=== PATIENT | male | born 1955 | race Caucasian/White ===

== ENCOUNTER 2020-12-24 14:37 | Emergency (ER) | payer MEDICARE, OTHER ==
[~2020-12-24] VITALS: Ht 180.3 cm; Wt 113.6 kg
[2020-12-24 15:53] LABS: BASO % 0 % (0-3); EOS # 0.2 x10^3/uL (0.0-0.7); EOS % 3 % (0-3); HEMOGLOBIN 10.5 g/dL (13.0-17.5); LYMPH # 1.6 x10^3/uL (1.0-4.8); LYMPH % 30 % (24-48); MEAN CORPUSCULAR HEMOGLOBIN 26 pg (25-35); MEAN CORPUSCULAR HGB CONC 32 g/dL (31-37); MEAN CORPUSCULAR VOLUME 82 fL (79-100); MONO # 0.5 x10^3/uL (0.0-1.1); MONO % 9 % (0-9); NEUT % 57 % (31-73); PLATELET COUNT 280 x10^3/uL (140-400); RED BLOOD COUNT 4.05 x10^6/uL (4.30-5.70); RED CELL DISTRIBUTION WIDTH 17.8 % (11.5-14.5); WHITE BLOOD COUNT 5.2 x10^3/uL (4.0-11.0)
[2020-12-24 15:59] LABS: BILIRUBIN,URINE NEGATIVE (NEG); CLARITY,URINE CLEAR; COLOR,URINE YELLOW; NITRITE,URINE POSITIVE (NEG); PROTEIN,URINE NEGATIVE (NEG-TRACE)
[2020-12-24 16:06] LABS: BACTERIA,URINE FEW /HPF (0-FEW); RBC,URINE OCC /HPF (0-2)
[2020-12-24 16:10] LABS: CALCIUM 8.9 mg/dL (8.5-10.1); GFR 75.5; POTASSIUM 4.6 mmol/L (3.5-5.1)
[2020-12-24 16:15] LABS: ALBUMIN 2.9 g/dL (3.4-5.0); ALBUMIN/GLOBULIN RATIO 0.8 (1.0-1.7); MAGNESIUM 2.1 mg/dL (1.8-2.4); TOTAL BILIRUBIN 0.3 mg/dL (0.2-1.0); TOTAL PROTEIN 6.5 g/dL (6.4-8.2)
[2020-12-24] MEDS ORDERED: IV NORMAL SALINE 1000ML BAG 1,000 ML IV ONE (16:15)
--- NOTE | 2020-12-24 16:22 | RAD ---
Exam: CT head and cervical spine INDICATION: Confusion, TECHNIQUE: Sequential axial images through the head and cervical spine were obtained without the admi nistration of IV contrast. Comparisons: None FINDINGS: Head: No focal parenchymal lesion or hemorrhage is identified. There is no midline shift or sulcal effaceme nt. Mild patchy hypodensity in the periventricular white matter. No acute vascular territory infarction i s identified. Stokes-white distinction is preserved. The ventricular system is within normal limits without compression hydrocephalus. The basal cisterns are well maintained. The visualized portions of the paranasal sinuses and mastoid air cells are well-pneumatized. No acute fractures. Cervical spine: Straightening of cervical spine which may positional. Vertebral body heights are well-maintained. Fracture to the cervical spine is not identified. Multilevel spondylotic change in the cervical spine with degenerative disc disease greatest at C5-C6 and C6-C7. Mild bilateral facet arthropathy is also noted. Visualized paraspinal soft tissues are unremarkable. IMPRESSION: 1. No acute intracranial abnormality. 2. Negative CT C-spine for acute traumatic injury. Exposure: One or more of the following in the visualized dose reduction techniques were utilized for this examination: 1. Automated exposure control 2. Adjustment of the MA and/or KV according to patient size Use of iterative of reconstructive technique Electronically signed by: Domo Erwin MD (12/24/2020 4:19 PM) [facility]
--- NOTE | 2020-12-24 17:24 | PHYS DOC ---
Past Medical History Past Medical History: Bipolar, Dementia, Depression, Schizophrenia Additional Past Medical Histor: PARKINSON'S, NEUROMUSCULAR DYSFUNCTION OF BLADDER Past Surgical History: No Surgical History Smoking Status: Never Smoker Alcohol Use: None General Adult EDM: Chief Complaint: ALTERED MENTAL STATUS HPI: HPI: Patient is a 65 year old male who was sent here from alf due to altered mental status. Patient has history of dementia, he also has history of indwelling Boyer catheter. Patient was recently been treated for UTI. Patient nursing staff reported that he has been more confused then usual, he refused to eat or drink the last few day. Review of Systems: Review of Systems: Constitutional: Denies fever or chills. [] Eyes: Denies change in visual acuity. [] HENT: Denies nasal congestion or sore throat. [] Respiratory: Denies cough or shortness of breath. [] Cardiovascular: Denies chest pain or edema. [] GI: Denies abdominal pain, nausea, vomiting, bloody stools or diarrhea. [] : Denies dysuria. [] Musculoskeletal: Denies back pain or joint pain. [] Integument: Denies rash. [] Neurologic: Denies headache, focal weakness or sensory changes. [] Endocrine: Denies polyuria or polydipsia. [] Lymphatic: Denies swollen glands. [] Psychiatric: Denies depression or anxiety. [] Heart Score: Risk Factors: Risk Factors: DM, Current or recent (<one month) smoker, HTN, HLP, family history of CAD, obesity. Risk Scores: Score 0 - 3: 2.5% MACE over next 6 weeks - Discharge Home Score 4 - 6: 20.3% MACE over next 6 weeks - Admit for Clinical Observation Score 7 - 10: 72.7% MACE over next 6 weeks - Early Invasive Strategies Current Medications: Current Medications Medications (Trade) Dose Ordered Sig/Rei Start Time Stop Time Status Last Admin Dose Admin Levofloxacin/ Dextrose 150 ml @ 100 mls/hr 1X ONCE 12/24/20 16:15 12/24/20 17:44 12/24/20 17:07 100 MLS/HR Sodium Chloride 1,000 ml @ 1,000 mls/hr 1X ONCE 12/24/20 16:15 12/24/20 17:14 DC 12/24/20 17:07 1,000 MLS/HR Allergies: Allergies: Allergies Coded Allergies Type Severity Reaction Last Updated Verified Penicillins Allergy Severe 12/24/20 Yes duloxetine Allergy Severe 12/24/20 Yes risperidone Allergy Severe 12/24/20 Yes Physical Exam: PE: Constitutional: Well developed, well nourished, no acute distress, non-toxic appearance. [] HENT: Normocephalic, atraumatic, bilateral external ears normal, oropharynx moist, no oral exudates, nose normal. [] Eyes: PERRLA, EOMI, conjunctiva normal, no discharge. [] Neck: Normal range of motion, no tenderness, supple, no stridor. [] Cardiovascular:Heart rate regular rhythm, no murmur [] Lungs & Thorax: Bilateral breath sounds clear to auscultation [] Abdomen: Bowel sounds normal, soft, no tenderness, no masses, no pulsatile masses. [] Skin: Warm, dry, no erythema, no rash. [] Back: No tenderness, no CVA tenderness. [] Extremities: No tenderness, no cyanosis, no clubbing, ROM intact, no edema. [] Neurologic: Patient is awake alert,oriented to person, normal speech. Psychologic: Affect normal, judgement normal, mood normal. [] Current Patient Data: Labs: Laboratory Tests Test 12/24/20 15:37 12/24/20 15:39 White Blood Count 5.2 x10^3/uL (4.0-11.0) Red Blood Count 4.05 x10^6/uL (4.30-5.70) L Hemoglobin 10.5 g/dL (13.0-17.5) L Hematocrit 33.0 % (39.0-53.0) L Mean Corpuscular Volume 82 fL (79-100) Mean Corpuscular Hemoglobin 26 pg (25-35) Mean Corpuscular Hemoglobin Concent 32 g/dL (31-37) Red Cell Distribution Width 17.8 % (11.5-14.5) H Platelet Count 280 x10^3/uL (140-400) Neutrophils (%) (Auto) 57 % (31-73) Lymphocytes (%) (Auto) 30 % (24-48) Monocytes (%) (Auto) 9 % (0-9) Eosinophils (%) (Auto) 3 % (0-3) Basophils (%) (Auto) 0 % (0-3) Neutrophils # (Auto) 3.0 x10^3/uL (1.8-7.7) Lymphocytes # (Auto) 1.6 x10^3/uL (1.0-4.8) Monocytes # (Auto) 0.5 x10^3/uL (0.0-1.1) Eosinophils # (Auto) 0.2 x10^3/uL (0.0-0.7) Basophils # (Auto) 0.0 x10^3/uL (0.0-0.2) Sodium Level 139 mmol/L (136-145) Potassium Level 4.6 mmol/L (3.5-5.1) Chloride Level 103 mmol/L (98-107) Carbon Dioxide Level 31 mmol/L (21-32) Anion Gap 5 (6-14) L Blood Urea Nitrogen 17 mg/dL (8-26) Creatinine 1.0 mg/dL (0.7-1.3) Estimated GFR (Cockcroft-Gault) 75.5 BUN/Creatinine Ratio 17 (6-20) Glucose Level 140 mg/dL (70-99) H Calcium Level 8.9 mg/dL (8.5-10.1) Magnesium Level 2.1 mg/dL (1.8-2.4) Total Bilirubin 0.3 mg/dL (0.2-1.0) Aspartate Amino Transferase (AST) 9 U/L (15-37) L Alanine Aminotransferase (ALT) 18 U/L (16-63) Alkaline Phosphatase 48 U/L (46-116) Creatine Kinase 68 U/L (39-308) Total Protein 6.5 g/dL (6.4-8.2) Albumin 2.9 g/dL (3.4-5.0) L Albumin/Globulin Ratio 0.8 (1.0-1.7) L Urine Collection Type Unknown Urine Color Yellow Urine Clarity Clear Urine pH 7.0 (<5.0-8.0) Urine Specific [place]ley 1.010 (1.000-1.030) Urine Protein Negative mg/dL (NEG-TRACE) Urine Glucose (UA) Negative mg/dL (NEG) Urine Ketones (Stick) Negative mg/dL (NEG) Urine Blood Negative (NEG) Urine Nitrite Positive (NEG) Urine Bilirubin Negative (NEG) Urine Urobilinogen Dipstick 1.0 mg/dL (0.2 mg/dL) Urine Leukocyte Esterase Moderate (NEG) Urine RBC Occ /HPF (0-2) Urine WBC 1-4 /HPF (0-4) Urine Squamous Epithelial Cells Occ /LPF Urine Bacteria Few /HPF (0-FEW) Laboratory Tests 12/24/20 15:37 Laboratory Tests 12/24/20 15:37 Vital Signs: Vital Signs Date Time Temp Pulse Resp B/P (MAP) Pulse Ox O2 Delivery O2 Flow Rate FiO2 12/24/20 17:08 83 23 97 12/24/20 14:37 98.4 149/77 (101) Room Air 98.4 EKG: EKG: [] Radiology/Procedures: Radiology/Procedures: [][facility] [address] [place], [place] [id number] IMAGING REPORT Signed PATIENT: JENNY IVAN ACCOUNT: [id number] : 1955 LOCATION: ER AGE: 65 SEX: M EXAM STATUS: REG ER ORD. PHYSICIAN: CHARMAINE ANGEL DO REASON: confusion, has been falling multiple times PROCEDURE: CT HEAD AND CERVICAL SPINE WO Exam: CT head and cervical spine INDICATION: Confusion, TECHNIQUE: Sequential axial images through the head and cervical spine were obtained without the administration of IV contrast. Comparisons: None FINDINGS: Head: No focal parenchymal lesion or hemorrhage is identified. There is no midline shift or sulcal effacement. Mild patchy hypodensity in the periventricular white matter. No acute vascular territory infarction is identified. Stokes-white distinction is preserved. The ventricular system is within normal limits without compression hydrocephalus. The basal cisterns are well maintained. The visualized portions of the paranasal sinuses and mastoid air cells are well- pneumatized. No acute fractures. Cervical spine: Straightening of cervical spine which may positional. Vertebral body heights are well-maintained. Fracture to the cervical spine is not identified. Multilevel spondylotic change in the cervical spine with degenerative disc disease greatest at C5-C6 and C6-C7. Mild bilateral facet arthropathy is also noted. Visualized paraspinal soft tissues are unremarkable. IMPRESSION: 1. No acute intracranial abnormality. 2. Negative CT C-spine for acute traumatic injury. Exposure: One or more of the following in the visualized dose reduction techniques were utilized for this examination: 1. Automated exposure control 2. Adjustment of the MA and/or KV according to patient size Use of iterative of reconstructive technique Electronically signed by: Domo Khan MD (12/24/2020 4:19 PM) [facility] DICTATED and SIGNED BY: DOMO KHAN MD DATE: 12/24/20 [id number] 0 Course & Med Decision Making: Course & Med Decision Making Pertinent Labs and Imaging studies reviewed. (See chart for details) Patient is a 65-year-old male who has UTI, he has an indwelling Boyer catheter. Patient was given IV fluid and IV Levaquin in the ER, patient was awake and alert, answer question appropriately, he will will be put on Levaquin p.o. for UTI, he will be discharged back to the alf Dragon Disclaimer: Arsenio Disclaimer: This electronic medical record was generated, in whole or in part, using a voice recognition dictation system. Departure Departure Impression: Primary Impression: UTI (urinary tract infection) Additional Impression: Confusion Disposition: 03 DC/TRF TO SNF Condition: IMPROVED Referrals: ARMANDO PUTNAM MD (PCP) FOLLOW UP WITH YOUR DOCTOR THIS WEEK Patient Instructions: Confusion, Urinary Tract Infection Additional Instructions: Thank you for visiting our Emergency Department. We appreciate you trusting us with your care. If any additional problems come up don't hesitate to return to visit us. Please follow up with your primary care provider so they can plan additional care if needed and know about the problem that you had. If symptoms worsen come back to the Emergency Department. Any concerning symptoms that start such as chest pain, shortness of air, weakness or numbness on one side of the body, running high fevers or any other concerning symptoms return to the ER. Scripts Levofloxacin (LEVOFLOXACIN) 500 Mg Tablet 1 TAB PO DAILY for 10 Days, #10 TAB Prov: CHARMAINE ANGEL DO 12/24/20 CHARMAINE ANGEL DO Dec 24, 2020 17:24
[2020-12-24 17:28] VITALS: BP 137/74
[2020-12-24] MEDS ORDERED: LEVO500T8 PO (17:30)
== END 2020-12-24 17:59 ==
LOC: ER 14:37
DX: N39.0 Urinary tract infection, site not specified (principal); R41.82 Altered mental status, unspecified; F32.9 Major depressive disorder, single episode, unspecified; F20.9 Schizophrenia, unspecified; F03.90 Unspecified dementia, unspecified severity, without behavioral disturbance, psychotic disturbance, mood disturbance, and anxiety; Z88.0 Allergy status to penicillin; Z88.8 Allergy status to other drugs, medicaments and biological substances
CPT/HCPCS: 36415; 70450; 72125; 80053; 81001; 82550; 83735; 85025; 87086; 96360; 99285; J1956; J7030

== ENCOUNTER 2021-01-01 10:01 | Emergency (ER) | payer MEDICARE, OTHER ==
[~2021-01-01] VITALS: Ht 177.8 cm; Wt 90.9 kg
[~2021-01-01 10:01] MED LIST: LEVO500T8 PO
[2021-01-01] MEDS ORDERED: IV NORMAL SALINE 1000ML BAG 1,000 ML IV ONE (10:30)
[2021-01-01 10:53] LABS: BASO % 0 % (0-3); EOS # 0.1 x10^3/uL (0.0-0.7); EOS % 2 % (0-3); HEMATOCRIT 34.5 % (39.0-53.0); HEMOGLOBIN 11.1 g/dL (13.0-17.5); LYMPH % 20 % (24-48); MEAN CORPUSCULAR HEMOGLOBIN 25 pg (25-35); MEAN CORPUSCULAR HGB CONC 32 g/dL (31-37); MEAN CORPUSCULAR VOLUME 79 fL (79-100); MONO # 0.4 x10^3/uL (0.0-1.1); MONO % 8 % (0-9); NEUT # 3.3 x10^3/uL (1.8-7.7); NEUT % 69 % (31-73); PLATELET COUNT 286 x10^3/uL (140-400); RED BLOOD COUNT 4.37 x10^6/uL (4.30-5.70); RED CELL DISTRIBUTION WIDTH 17.8 % (11.5-14.5); WHITE BLOOD COUNT 4.7 x10^3/uL (4.0-11.0)
--- NOTE | 2021-01-01 10:58 | RAD ---
EXAM: XR CHEST 1V 01/01/2021 10:24 AM CLINICAL INDICATION: Chills COMPARISON: None TECHNIQUE: AP upright view of the chest FINDINGS: The heart and mediastinum are normal. Lungs are well-expanded. There is a small left pleu ral effusion. No consolidation. No pneumothorax. Pulmonary vascularity is normal. There is chronic deformity of left shoulder with elevation of the scapula and absent humeral shaft. This has been repo rted on prior exams, although images are not available for comparison. IMPRESSION: Small left pleural effusion. Electronically signed by: Karime Allen MD (01/01/2021 10:55 AM) [id number]
[2021-01-01 11:01] LABS: CALCIUM 9.1 mg/dL (8.5-10.1); GFR 75.5; POTASSIUM 3.4 mmol/L (3.5-5.1)
--- NOTE | 2021-01-01 11:03 | PHYS DOC ---
Past Medical History Past Medical History: Bipolar, Dementia, Depression, Schizophrenia Additional Past Medical Histor: PARKINSON'S, NEUROMUSCULAR DYSFUNCTION OF BLADDER Past Surgical History: No Surgical History Smoking Status: Never Smoker Alcohol Use: None General Adult EDM: Chief Complaint: OTHER COMPLAINTS HPI: HPI: Patient is a 65 year old male with history of bipolar, schizophrenia, dementia, depression, presenting from a local group home to be evaluated because he was noted to have cold and shivering this morning. Patient has no complaints. Patient denies any coughing, chest pain or shortness of breath. Patient denies any complaints Review of Systems: Review of Systems: Constitutional: Reports cold and shivering. Denies fever or chills. [] Eyes: Denies change in visual acuity. [] HENT: Denies nasal congestion or sore throat. [] Respiratory: Denies cough or shortness of breath. [] Cardiovascular: Denies chest pain or edema. [] GI: Denies abdominal pain, nausea, vomiting, bloody stools or diarrhea. [] : Denies dysuria. [] Musculoskeletal: Denies back pain or joint pain. [] Integument: Denies rash. [] Neurologic: Denies headache, focal weakness or sensory changes. [] Heart Score: Risk Factors: Risk Factors: DM, Current or recent (<one month) smoker, HTN, HLP, family history of CAD, obesity. Risk Scores: Score 0 - 3: 2.5% MACE over next 6 weeks - Discharge Home Score 4 - 6: 20.3% MACE over next 6 weeks - Admit for Clinical Observation Score 7 - 10: 72.7% MACE over next 6 weeks - Early Invasive Strategies Current Medications: Current Medications Medications (Trade) Dose Ordered Sig/Rei Start Time Stop Time Status Last Admin Dose Admin Sodium Chloride 1,000 ml @ 1,000 mls/hr 1X ONCE 01/01/21 10:30 01/01/21 11:29 Allergies: Allergies: Allergies Coded Allergies Type Severity Reaction Last Updated Verified Penicillins Allergy Severe 12/24/20 Yes duloxetine Allergy Severe 12/24/20 Yes risperidone Allergy Severe 12/24/20 Yes Physical Exam: PE: Constitutional: Well developed, well nourished, no acute distress, non-toxic appearance. [] HENT: Normocephalic, atraumatic, bilateral external ears normal, oropharynx moist, no oral exudates, nose normal. [] Eyes: PERRLA, EOMI, conjunctiva normal, no discharge. [] Neck: Normal range of motion, no tenderness, supple, no stridor. [] Cardiovascular:Heart rate regular rhythm, no murmur [] Lungs & Thorax: Bilateral breath sounds clear to auscultation [] Abdomen: Bowel sounds normal, soft, no tenderness, no masses, no pulsatile masses. [] Skin: Warm, dry, no erythema, no rash. [] Back: No tenderness, no CVA tenderness. [] Extremities: No tenderness, no cyanosis, no clubbing, ROM intact, no edema. 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 [] Psychologic: Affect normal, judgement normal, mood normal. [] Current Patient Data: Vital Signs: Vital Signs Date Time Temp Pulse Resp B/P (MAP) Pulse Ox O2 Delivery O2 Flow Rate FiO2 01/01/21 10:08 98.1 90 16 126/76 (93) 98 Room Air 98.1 EKG: EKG: [] Radiology/Procedures: Radiology/Procedures: []PROCEDURE: PORTABLE CHEST 1V EXAM: XR CHEST 1V 01/01/2021 10:24 AM CLINICAL INDICATION: Chills COMPARISON: None TECHNIQUE: AP upright view of the chest FINDINGS: The heart and mediastinum are normal. Lungs are well-expanded. There is a small left pleural effusion. No consolidation. No pneumothorax. Pulmonary vascularity is normal. There is chronic deformity of left shoulder with elevation of the scapula and absent humeral shaft. This has been reported on prior exams, although images are not available for comparison. IMPRESSION: Small left pleural effusion. Electronically signed by: Karime Allen MD (01/01/2021 10:55 AM) [id number] DICTATED and SIGNED BY: KARIME ALLEN MD DATE: 01/01/21 [id number] 0 Course & Med Decision Making: Course & Med Decision Making Pertinent Labs and Imaging studies reviewed. (See chart for details) This is a 65-year-old male patient presented to the ED from the local group home to be evaluated for chills and shivering. Patient is afebrile on arrival to the ED. Patient himself has no complaints. Temperature 98.1, heart rate 90, respirations 16 on room air, O2 sats 98%, blood pressure 126/76. Chest x-ray noted for small left pleural effusion otherwise no acute findings. Patient's labs did not have anything really acute. Urine positive for small amount of leukocytes 5-10 WBC, patient has neuromuscular dysfunction of bladder with hx of frequent UTI, discharged on levaquin. Follow-up with PCP. RN called [facility] where patient came from to give report, nurse at the group home was refusing patient stating he needs to be admitted back he needs to be admitted order waiting for patient's PCP to call back and see if they will take this patient back to the group home. I talked to patient's PCP Dr. Armando Elizabeth. I gave him lab results. He acc epted patient back to the group home. Dragon Disclaimer: Dragon Disclaimer: This electronic medical record was generated, in whole or in part, using a voice recognition dictation system. Departure Departure Impression: Primary Impression: Urinary tract infection Qualified Codes: N39.0 - Urinary tract infection, site not specified Additional Impression: Shivering Disposition: 01 DC HOME SELF CARE/HOMELESS Condition: STABLE Referrals: ARMANDO ELIZABETH MD (PCP) Follow-up in 1 week Patient Instructions: Urinary Tract Infection Additional Instructions: You were evaluated in the emergency room and noted to have urinary tract infection. Take the prescribed antibiotics until completed. Push fluids. Follow-up with your doctor in 1 to 2 weeks. Scripts Levofloxacin (LEVOFLOXACIN) 500 Mg Tablet 1 TAB PO DAILY, #7 TAB Prov: MADDI SEPULVEDA APRN 01/01/21 MADDI SEPULVEDA APRN Jan 01, 2021 11:03
[2021-01-01 11:07] LABS: ALBUMIN 3.3 g/dL (3.4-5.0); ALBUMIN/GLOBULIN RATIO 0.9 (1.0-1.7); TOTAL BILIRUBIN 0.4 mg/dL (0.2-1.0); TOTAL PROTEIN 7.1 g/dL (6.4-8.2)
[2021-01-01 11:09] LABS: PROTHROMBIN TIME PATIENT 13.4 SEC (11.7-14.0)
[2021-01-01 11:20] LABS: CREATINE KINASE 70 U/L (39-308)
--- NOTE | 2021-01-01 12:31 | EKG ---
[facility] [address] [place] [id number] Test Date: 2021-01-01 Test Time: 12:23:09 Pat Name: JENNY IVAN Department: Room: Gender: M Fire Control Technician B: : 1955 Requested By: MADDI SEPULVEDA Order Number: [id number] Reading MD: Measurements Intervals [place] Rate: 79 P: 66 [place]: 136 QRS: -77 QRSD: 108 T: 26 QT: 432 QTc: 497 Interpretive Statements SINUS RHYTHM ABNORMAL LEFT AXIS DEVIATION LEFT ANTERIOR FASCICULAR BLOCK T ABNORMALITY IN INFERIOR LEADS PROLONGED QT ABNORMAL ECG RI6.01 No previous ECG available for comparison
[2021-01-01 13:02] LABS: BILIRUBIN,URINE NEGATIVE (NEG); CLARITY,URINE CLEAR; COLOR,URINE YELLOW; NITRITE,URINE NEGATIVE (NEG); PROTEIN,URINE NEGATIVE (NEG-TRACE); UROBILINOGEN,URINE 0.2 mg/dL (0.2 mg/dL)
[2021-01-01 13:21] LABS: HYALINE CASTS, URINE OCCASIONAL /HPF
[2021-01-01 13:22] LABS: BACTERIA,URINE 0 /HPF (0-FEW)
[2021-01-01] MEDS ORDERED: LEVO500T8 PO (13:49)
[2021-01-01 14:06] VITALS: BP 149/86
--- NOTE | 2021-01-02 13:31 | NUR ---
IP: I notified nurse, Cindy, at [facility] of pt's negative COVID test. She verbalized understanding.
== END 2021-01-01 15:23 | disposition home or self-care (01) ==
LOC: ER 10:01
DX: N39.0 Urinary tract infection, site not specified (principal); Z20.822 Contact with and (suspected) exposure to COVID-19; R68.83 Chills (without fever); F31.9 Bipolar disorder, unspecified; F03.90 Unspecified dementia, unspecified severity, without behavioral disturbance, psychotic disturbance, mood disturbance, and anxiety; F20.9 Schizophrenia, unspecified; Z88.0 Allergy status to penicillin; Z88.8 Allergy status to other drugs, medicaments and biological substances
CPT/HCPCS: 36415; 71045; 80053; 81001; 82553; 83605; 84145; 85025; 85610; 85730; 87040; 87086; 93005; 96360; 99285; C9803; J7030; U0003